=== PATIENT | female | born 1975 | race Hispanic/Latino ===

== ENCOUNTER 2018-06-30 01:11 | Emergency (ER) | payer SELFPAY ==
--- NOTE | 2018-06-30 02:24 | ER ---
Nurse's Notes [facility] Name: Kailey Michelle Age: 42 yrs Sex: Female : 1975 Arrival Date: 06/30/2018 Time: :17 Bed 17 Private MD: Diagnosis: Dental caries;Dental caries, unspecified Presentation: 06/30 01:33 Presenting complaint: Patient states: "I have a toothache for the past few days and it ao got worst today." Patient C/O pain of 10 in a scale of 0-10. Transition of care: patient was not received from another setting of care. Onset of symptoms was June 29, 2018 at 16:00. Risk Assessment: Do you want to hurt yourself or someone else? Patient reports no desire to harm self or others. Initial Sepsis Screen: Does the patient meet any 2 criteria? No. Patient's initial sepsis screen is negative. Does the patient have a suspected source of infection? Yes: Bone or joint infection. Care prior to arrival: None. 01:33 Method Of Arrival: Ambulatory ao 01:33 Acuity: ENRIQUE 4 ao Triage Assessment: 01:43 EENT: Reports pain in right cheek. 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 - Social history:: Smoking status: Patient/guardian denies using tobacco, but has a distant history of tobacco abuse, Patient/guardian denies using alcohol, street drugs. - Ebola Screening: : Patient negative for fever greater than or equal to 101.5 degrees Fahrenheit, and additional compatible Ebola Virus Disease symptoms Patient denies exposure to infectious person Patient denies travel to an Ebola-affected area in the 21 days before illness onset. - Family history:: not pertinent. Screenin:42 Abuse screen: Denies threats or abuse. Denies injuries from another. Nutritional ao screening: No deficits noted. Tuberculosis screening: No symptoms or risk factors identified. Fall Risk None identified. Assessment: 01:40 General: Appears in no apparent distress. comfortable, Behavior is calm, cooperative, ao appropriate for age. Pain: Complains of pain in mouth and right cheek Pain currently is 10 out of 10 on a pain scale. Neuro: Level of Consciousness is awake, alert, obeys commands, Oriented to person, place, time, situation, Appropriate for age Moves all extremities. Full function Speech is normal, Facial symmetry appears normal. Cardiovascular: Capillary refill < 3 seconds Patient's skin is warm and dry. Respiratory: Airway is patent Respiratory effort is even, unlabored, Respiratory pattern is regular, symmetrical. GI: Abdomen is non-distended. : No signs and/or symptoms were reported regarding the genitourinary system. EENT: Poor dentition noted. Derm: No signs and/or symptoms reported regarding the dermatologic system. Musculoskeletal: No signs and/or symptoms reported regarding the musculoskeletal system. 02:21 Reassessment: Patient and/or family updated on plan of care and expected duration. Pain ea level reassessed. Patient is alert, oriented x 3, equal unlabored respirations, skin warm/dry/pink. Vital Signs: 01:36 BP 140 / 79; Pulse 87; Resp 18; Temp 97.7(O); Pulse Ox 100% on R/A; Weight 72.57 kg; ao Height 5 ft. 4 in. (162.56 cm); Pain 10/10; 01:36 Body Mass Index 27.46 (72.57 kg, 162.56 cm) ao ED Course: 01:17 Patient arrived in ED. al2 01:33 Rick Barnes, RN is Primary Nurse. ao 01:36 Triage completed. ao 01:38 Arm band placed on right wrist. Patient placed in an exam room, on a stretcher, on ao pulse oximetry, Patient notified of wait time. 01:41 Roberto Mckeon MD is Attending Physician. christina 01:43 Patient has correct armband on for positive identification. Pulse ox on. NIBP on. ao 02:22 Bobby Maldonado DDS is Referral Physician. christina 02:31 No provider procedures requiring assistance completed. Patient did not have IV access ao during this emergency room visit. Administered Medications: 02:30 Drug: [place] 10 mg-325 mg 1 tabs Route: PO; ao 02:30 Follow up: Response: Medication administered at discharge. ao 02:30 Drug: Augmentin 875 mg Route: PO; ao 02:30 Follow up: Response: Medication administered at discharge. ao Outcome: 02:22 Discharge ordered by . christina 02:31 Discharged to home ambulatory. ao 02:31 Condition: stable 02:31 Discharge instructions given to patient, significant other, Instructed on discharge instructions, follow up and referral plans. Demonstrated understanding of instructions, follow-up care, medications, Prescriptions given X 2. 02:32 Patient left the ED. ao Signatures: Roberto Mckeon MD MD cha Ortiz, Alex, RN RN Mackenzie Moore, RN RN jaycob Arellano, Cathi [email or web address]
--- NOTE | 2018-06-30 02:24 | EDPHYS ---
Physician Documentation [facility] Name: Kailey Michelle Age: 42 yrs Sex: Female : 1975 Arrival Date: 06/30/2018 Time: 01:17 Bed 17 Private MD: ED Physician Roberto Mckeon HPI: 06/30 02:19 This 42 yrs old Female presents to ER via Ambulatory with complaints of christina Toothache. 02:19 The patient presents with broken tooth/teeth, pain. The problem is located in the lower christina right first molar. Onset: The symptoms/episode began/occurred 2 day(s) ago. Duration: The symptoms are continuous, and are unchanged since they started. Modifying factors: The symptoms are alleviated by nothing, the symptoms are aggravated by chewing, cold fluids, food, hot fluids, talking. Associated signs and symptoms: The patient has no apparent associated signs or symptoms. Severity of symptoms: At their worst the symptoms were mild, moderate, in the emergency department the symptoms have improved, mildly. The patient has experienced similar episodes in the past, several times. 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 - Social history:: Smoking status: Patient/guardian denies using tobacco, but has a distant history of tobacco abuse, Patient/guardian denies using alcohol, street drugs. - Ebola Screening: : Patient negative for fever greater than or equal to 101.5 degrees Fahrenheit, and additional compatible Ebola Virus Disease symptoms Patient denies exposure to infectious person Patient denies travel to an Ebola-affected area in the 21 days before illness onset. - Family history:: not pertinent. ROS: 02:19 Constitutional: Negative for fever, chills, and weight loss, Eyes: Negative for injury, christina pain, redness, and discharge, Neck: Negative for injury, pain, and swelling, Cardiovascular: Negative for chest pain, palpitations, and edema, Respiratory: Negative for shortness of breath, cough, wheezing, and pleuritic chest pain, Abdomen/GI: Negative for abdominal pain, nausea, vomiting, diarrhea, and constipation, Back: Negative for injury and pain, : Negative for injury, bleeding, discharge, and swelling, MS/Extremity: Negative for injury and deformity, Skin: Negative for injury, rash, and discoloration, Neuro: Negative for headache, weakness, numbness, tingling, and seizure. 02:19 ENT: Positive for Teeth pain Exam: 02:19 Constitutional: This is a well developed, well nourished patient who is awake, alert, christina and in no acute distress. Head/Face: Normocephalic, atraumatic. Eyes: Pupils equal round and reactive to light, extra-ocular motions intact. Lids and lashes normal. Conjunctiva and sclera are non-icteric and not injected. Cornea within normal limits. Periorbital areas with no swelling, redness, or edema. Neck: Trachea midline, no thyromegaly or masses palpated, and no cervical lymphadenopathy. Supple, full range of motion without nuchal rigidity, or vertebral point tenderness. No Meningismus. Chest/axilla: Normal chest wall appearance and motion. Nontender with no deformity. No lesions are appreciated. Cardiovascular: Regular rate and rhythm with a normal S1 and S2. No gallops, murmurs, or rubs. Normal PMI, no JVD. No pulse deficits. Respiratory: Lungs have equal breath sounds bilaterally, clear to auscultation and percussion. No rales, rhonchi or wheezes noted. No increased work of breathing, no retractions or nasal flaring. Abdomen/GI: Soft, non-tender, with normal bowel sounds. No distension or tympany. No guarding or rebound. No evidence of tenderness throughout. Back: No spinal tenderness. No costovertebral tenderness. Full range of motion. Skin: Warm, dry with normal turgor. Normal color with no rashes, no lesions, and no evidence of cellulitis. MS/ Extremity: Pulses equal, no cyanosis. Neurovascular intact. Full, normal range of motion. Neuro: Awake and alert, GCS 15, oriented to person, place, time, and situation. Cranial nerves II-XII grossly intact. Motor strength 5/5 in all extremities. Sensory grossly intact. Cerebellar exam normal. Normal gait. Psych: Awake, alert, with orientation to person, place and time. Behavior, mood, and affect are within normal limits. 02:19 ENT: Mouth: Oral mucosa: moist, Gums: reddened, on the lower right first molar, Tongue: is normal, abscess, is not appreciated, drooling, is not appreciated. Vital Signs: 01:36 BP 140 / 79; Pulse 87; Resp 18; Temp 97.7(O); Pulse Ox 100% on R/A; Weight 72.57 kg; ao Height 5 ft. 4 in. (162.56 cm); Pain 10/10; 01:36 Body Mass Index 27.46 (72.57 kg, 162.56 cm) ao MDM: 01:41 Patient medically screened. christina Administered Medications: 02:30 Drug: [place] 10 mg-325 mg 1 tabs Route: PO; ao 02:30 Follow up: Response: Medication administered at discharge. ao 02:30 Drug: Augmentin 875 mg Route: PO; ao 02:30 Follow up: Response: Medication administered at discharge. ao Disposition: 06/30/18 02:22 Discharged to Home. Impression: Dental caries, Dental caries, unspecified. - Condition is Stable. - Discharge Instructions: Dental Abscess, Dental Caries, Adult, Dental Pain, Dental Pain, [id number], Diet and Dental Disease. - Prescriptions for Augmentin 875- 125 mg Oral Tablet - take 1 tablet by ORAL route every 12 hours for 7 days; 14 tablet. Tylenol- Codeine #3 300-30 mg Oral Tablet - take 2 tablet by ORAL route every 6 hours As needed; 30 tablet. - Medication Reconciliation Form, Thank You Letter, Antibiotic Education, Prescription Opioid Use form. - Follow up: Private Physician; When: 1 - 2 days; Reason: Recheck today's complaints, Continuance of care, Re-evaluation by your physician. Follow up: Bobby Maldonado DDS; When: 1 - 2 days; Reason: Recheck today's complaints, Continuance of care, Re-evaluation by your physician. - Problem is new. - Symptoms have improved. Signatures: Roberto Mckeon MD MD cha Ortiz, Alex RN RN ao Corrections: (The following items were deleted from the chart) 02:32 02:22 06/30/2018 02:22 Discharged to Home. Impression: Dental caries; Dental caries, ao unspecified. Condition is Stable. Forms are Medication Reconciliation Form, Thank You Letter, Antibiotic Education, Prescription Opioid Use. Follow up: Private Physician; When: 1 - 2 days; Reason: Recheck today's complaints, Continuance of care, Re-evaluation by your physician. Follow up: Bobby Maldonado; When: 1 - 2 days; Reason: Recheck today's complaints, Continuance of care, Re-evaluation by your physician. Problem is new. Symptoms have improved. christina
[2018-06-30] MEDS ORDERED: AMOX TR/K CLAV 400MG CHEW TAB PO ONE (02:27)
[2018-06-30] MEDS ORDERED: HYDROCODONE/APAP 10/325 TAB ONE (02:27)
[2018-06-30] MEDS ORDERED: AMOX/K CLAV 875 MG TAB ONE (02:29)
== END 2018-06-30 02:32 | disposition home or self-care (01) ==
LOC: ER 01:11
DX: K02.9 Dental caries, unspecified (principal)
CPT/HCPCS: 99283